=== PATIENT | female | born 1970 | race Caucasian/White ===

== ENCOUNTER 2017-03-30 16:03 | Emergency (ER) | payer BC ==
[~2017-03-30] VITALS: Ht 165.1 cm; Wt 90.7 kg
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
[2017-03-30 17:04] VITALS: BP 223/124
== END 2017-03-30 16:57 | disposition short-term general hospital (02) ==
LOC: ER 16:03
DX: S19.9XXA Unspecified injury of neck, initial encounter (principal); R20.0 Anesthesia of skin; I10 Essential (primary) hypertension; V49.49XA Driver injured in collision with other motor vehicles in traffic accident, initial encounter; Y93.89 Activity, other specified; Y99.8 Other external cause status; Y92.89 Other specified places as the place of occurrence of the external cause
CPT/HCPCS: 99285-25